=== PATIENT | male | born 1975 | race African-American/Black ===

== ENCOUNTER 2018-04-19 07:58 | Emergency (ER) | payer MEDICAID ==
[~2018-04-19] VITALS: Ht 177.8 cm; Wt 113.0 kg
[~2018-04-19 07:58] MED LIST: QUET300T2 PO; SERT50TA PO
[2018-04-19] MEDS ORDERED: KETOROLAC 30MG/ML VIAL IV STA (10:43)
[2018-04-19] MEDS ORDERED: MORPHINE SULFATE 4 MG/ML CPJ (NOT FOR IM USE) IV ONE (11:45)
[2018-04-19 11:51] LABS: BASOPHILS % 0.8 % (0.0-2.0); EOSINOPHILS % 0.2 % (0.0-5.0); HEMATOCRIT. 47.3 % (42.0-52.0); HEMOGLOBIN. 16.3 g/dL (14.0-18.0); LYMPHOCYTES % 30.4 % (20.0-50.0); MEAN CORPUSCULAR HEMOGLOBIN 32.9 pg (28.0-32.0); MEAN CORPUSCULAR VOLUME 95.7 fL (80.0-94.0); MEAN PLATELET VOLUME 7.4 fl (7.4-10.4); MONOCYTES % 10.3 % (2.0-8.0); NEUTROPHILS % 58.3 % (40.0-76.0); PLATELET 249 x1000/uL (130-400); RED BLOOD CELL COUNT 4.95 mill/uL (4.7-6.1); RED CELL DISTRIBUTION WIDTH 14.7 % (11.6-14.6)
[2018-04-19 11:59] LABS: CHLORIDE 103 mEq/L (98-107)
[2018-04-19] MEDS ORDERED: ONDANSETRON HCL 4MG/2ML INJ IV ONE (12:00)
[2018-04-19] MEDS ORDERED: POTASSIUM CHLORIDE 20MEQ TABLET SR PO ONE (12:30)
[2018-04-19 12:45] LABS: CLARITY URINE CLEAR (CLEAR); COLOR URINE DARK YELLOW (YELLOW); KETONES URINE 2+ (NEGATIVE); LEUKOCYTE ESTERASE URINE NEGATIVE (NEGATIVE); NITRITE URINE NEGATIVE (NEGATIVE); OCCULT BLOOD URINE NEGATIVE (NEGATIVE); PROTEIN URINE 1+ (NEGATIVE); SPECIFIC GRAVITY URINE 1.037 (1.005-1.030)
[2018-04-19 13:00] VITALS: BP 117/75
== END 2018-04-19 13:00 | disposition home or self-care (01) ==
LOC: ER 09:06
DX: E87.6 Hypokalemia (principal); R10.12 Left upper quadrant pain; R30.0 Dysuria; R19.7 Diarrhea, unspecified; F12.10 Cannabis abuse, uncomplicated; F32.9 Major depressive disorder, single episode, unspecified
CPT/HCPCS: 36415; 74176; 80053; 81003; 83690; 85025; 96374; 96375; 99284; J1885; J2270; J2405

== ENCOUNTER 2018-08-08 16:22 | Emergency (ER) | payer MEDICAID ==
[~2018-08-08] VITALS: Ht 177.8 cm; Wt 100.0 kg
[~2018-08-08 16:22] MED LIST changes: +ACETAMINOPHEN 325MG TABLET ONE
[2018-08-08] MEDS ORDERED: ACETAMINOPHEN 325MG TABLET PO ONE (17:00)
[2018-08-08 21:10] VITALS: BP 136/113
== END 2018-08-09 04:24 | disposition left against medical advice (07) ==
LOC: ER 16:22
DX: R30.9 Painful micturition, unspecified (principal)
CPT/HCPCS: 99282

== ENCOUNTER 2018-08-09 08:01 | Emergency (ER) | payer MEDICAID ==
[~2018-08-09] VITALS: Ht 177.8 cm; Wt 100.0 kg
[~2018-08-09 08:01] MED LIST changes: -ACETAMINOPHEN 325MG TABLET ONE
[2018-08-09] MEDS ORDERED: KETOROLAC 30MG/ML VIAL IV STA (12:06)
[2018-08-09] MEDS ORDERED: ONDANSETRON HCL 4MG/2ML INJ IV STA (12:06)
[2018-08-09] MEDS ORDERED: MORPHINE SULFATE 4 MG/ML CPJ (NOT FOR IM USE) IV STA (12:06)
[2018-08-09] MEDS ORDERED: SODIUM CHLORIDE 0.9% 1,000 ML IV ONE ×2 (12:06→15:09)
[2018-08-09] MEDS ORDERED: CEFTRIAXONE 1 G PREMIX 50 ML IV ONE (12:15)
[2018-08-09 12:37] LABS: BASOPHILS % 0.5 % (0.0-2.0); EOSINOPHILS % 0.3 % (0.0-5.0); HEMATOCRIT. 48.7 % (42.0-52.0); HEMOGLOBIN. 17.1 g/dL (14.0-18.0); LYMPHOCYTES % 21.7 % (20.0-50.0); MEAN CORPUSCULAR HEMOGLOBIN 34.2 pg (28.0-32.0); MEAN CORPUSCULAR VOLUME 97.5 fL (80.0-94.0); MEAN PLATELET VOLUME 7.5 fl (7.4-10.4); MONOCYTES % 10.7 % (2.0-8.0); NEUTROPHILS % 66.8 % (40.0-76.0); PLATELET 277 x1000/uL (130-400); RED BLOOD CELL COUNT 4.99 mill/uL (4.7-6.1); RED CELL DISTRIBUTION WIDTH 13.9 % (11.6-14.6)
[2018-08-09 12:41] LABS: CHLORIDE 97 mEq/L (98-107)
[2018-08-09 13:00] LABS: INR 1.1; PARTIAL THROMBOPLASTIN TIME 32.6 sec (23.4-31.0); PROTHROMBIN TIME 11.4 sec (9.1-11.1)
[2018-08-09] MEDS ORDERED: POTASSIUM CHLORIDE 20MEQ TABLET SR PO ONE (13:30)
[2018-08-09 13:53] LABS: CLARITY URINE CLOUDY (CLEAR); COLOR URINE DARK YELLOW (YELLOW); KETONES URINE 1+ (NEGATIVE); LEUKOCYTE ESTERASE URINE TRACE (NEGATIVE); NITRITE URINE NEGATIVE (NEGATIVE); OCCULT BLOOD URINE NEGATIVE (NEGATIVE); PROTEIN URINE 1+ (NEGATIVE); SPECIFIC GRAVITY URINE 1.033 (1.005-1.030)
[2018-08-09 14:07] LABS: *AMPHETAMINES SCREEN URINE NEGATIVE (NEGATIVE); *BARBITURATES SCREEN URINE NEGATIVE (NEGATIVE); *BENZODIAZEPINES SCREEN URINE NEGATIVE (NEGATIVE); *COCAINE SCREEN URINE NEGATIVE (NEGATIVE)
[2018-08-09 14:08] LABS: CANNABINOID URINE SCREEN PRESUMTIVE POSITIVE (NEGATIVE); METHADONE URINE SCREEN NEGATIVE (NEGATIVE); OPIATES URINE SCREEN PRESUMTIVE POSITIVE (NEGATIVE)
[2018-08-09 14:09] LABS: PHENCYCLIDINE URINE SCREEN NEGATIVE (NEGATIVE)
[2018-08-09] MEDS ORDERED: ONDANSETRON HCL 4MG/2ML INJ IV ONE (15:15)
[2018-08-09] MEDS ORDERED: MORPHINE SULFATE 4 MG/ML CPJ (NOT FOR IM USE) IV ONE (15:15)
[2018-08-09 17:30] VITALS: BP 116/68
== END 2018-08-09 17:43 | disposition home or self-care (01) ==
LOC: ER 08:01
DX: N39.0 Urinary tract infection, site not specified (principal); E87.6 Hypokalemia; F12.10 Cannabis abuse, uncomplicated; Z98.890 Other specified postprocedural states
CPT/HCPCS: 36415; 74176; 80053; 80305; 81003; 83605; 83690; 83880; 84484; 85025; 85610; 85730; 87040; 87086; 96365; 96366; 96375; 96376; 99284; J0696; J1885; J2270; J2405; J7030

== ENCOUNTER 2018-08-20 15:57 | Emergency (ER) | payer MEDICAID ==
[~2018-08-20] VITALS: Ht 177.8 cm; Wt 95.0 kg
[2018-08-20 16:32] LABS: CLARITY URINE CLEAR (CLEAR); COLOR URINE YELLOW (YELLOW); KETONES URINE TRACE (NEGATIVE); LEUKOCYTE ESTERASE URINE NEGATIVE (NEGATIVE); NITRITE URINE NEGATIVE (NEGATIVE); OCCULT BLOOD URINE NEGATIVE (NEGATIVE); PROTEIN URINE NEGATIVE (NEGATIVE); SPECIFIC GRAVITY URINE 1.013 (1.005-1.030); UROBILINOGEN URINE 0.2 E.U./dL (0.2-1.0)
[2018-08-20] MEDS ORDERED: SODIUM CHLORIDE 0.9% 100 ML IV ONE (19:30)
[2018-08-20] MEDS ORDERED: ONDANSETRON HCL 4MG/2ML INJ IV ONE (19:30)
[2018-08-20] MEDS ORDERED: MORPHINE SULFATE 4 MG/ML CPJ (NOT FOR IM USE) IV ONE (19:30)
[2018-08-20 21:39] LABS: BASOPHILS % 0.9 % (0.0-2.0); EOSINOPHILS % 1.1 % (0.0-5.0); LYMPHOCYTES % 42.6 % (20.0-50.0); MEAN CORPUSCULAR HEMOGLOBIN 33.9 pg (28.0-32.0); MEAN PLATELET VOLUME 7.5 fl (7.4-10.4); MONOCYTES % 8.1 % (2.0-8.0); NEUTROPHILS % 47.3 % (40.0-76.0); PLATELET 267 x1000/uL (130-400); RED BLOOD CELL COUNT 4.14 mill/uL (4.7-6.1); RED CELL DISTRIBUTION WIDTH 13.8 % (11.6-14.6)
[2018-08-20 21:46] LABS: CHLORIDE 109 mEq/L (98-107)
[2018-08-20] MEDS ORDERED: IBUPROFEN 800MG TABLET PO ONE (22:15)
[2018-08-20 23:29] VITALS: BP 115/69
== END 2018-08-20 23:29 | disposition home or self-care (01) ==
LOC: ER 16:01
DX: R39.11 Hesitancy of micturition (principal); R10.9 Unspecified abdominal pain; F17.200 Nicotine dependence, unspecified, uncomplicated
CPT/HCPCS: 36415; 76700; 80053; 81003; 85025; 87086; 96374; 96375; 99284; J2270; J2405; J7050

== ENCOUNTER 2018-10-20 19:17 | Inpatient (IN) | payer OTHER, MEDICAID ==
[~2018-10-20] VITALS: Ht 172.7 cm; Wt 86.6 kg
[2018-10-20 23:36] LABS: CHLORIDE 104 mEq/L (98-107)
[2018-10-20 23:40] LABS: ETHANOL BLOOD 41 mg/dL
[2018-10-20 23:47] LABS: EOSINOPHILS % 1.5 % (0.0-5.0); HEMATOCRIT. 40.2 % (42.0-52.0); HEMOGLOBIN. 14.2 g/dL (14.0-18.0); LYMPHOCYTES % 41.9 % (20.0-50.0); MEAN CORPUSCULAR HEMOGLOBIN 34.6 pg (28.0-32.0); MEAN CORPUSCULAR VOLUME 98.3 fL (80.0-94.0); NEUTROPHILS % 48.6 % (40.0-76.0); PLATELET 203 x1000/uL (130-400); RED BLOOD CELL COUNT 4.09 mill/uL (4.7-6.1); RED CELL DISTRIBUTION WIDTH 14.3 % (11.6-14.6)
[2018-10-21] MEDS ORDERED: POTASSIUM CHLORIDE INJ 40 MEQ in DEXT 5% WATER 250 ML IV NR ×2
[2018-10-21] MEDS ORDERED: POTASSIUM CHLORIDE 20MEQ TABLET SR PO NR
[2018-10-21 00:10] LABS: CLARITY URINE CLEAR (CLEAR); COLOR URINE AMBER (YELLOW); KETONES URINE TRACE (NEGATIVE); LEUKOCYTE ESTERASE URINE NEGATIVE (NEGATIVE); NITRITE URINE NEGATIVE (NEGATIVE); OCCULT BLOOD URINE 3+ (NEGATIVE); PH URINE 5.5 (4.5-8.0); PROTEIN URINE 1+ (NEGATIVE); SPECIFIC GRAVITY URINE 1.038 (1.005-1.030)
[2018-10-21 00:17] LABS: *BENZODIAZEPINES SCREEN URINE NEGATIVE (NEGATIVE); *COCAINE SCREEN URINE NEGATIVE (NEGATIVE); METHADONE URINE SCREEN NEGATIVE (NEGATIVE); OPIATES URINE SCREEN NEGATIVE (NEGATIVE); PHENCYCLIDINE URINE SCREEN NEGATIVE (NEGATIVE)
[2018-10-21 00:18] LABS: *AMPHETAMINES SCREEN URINE NEGATIVE (NEGATIVE); *BARBITURATES SCREEN URINE NEGATIVE (NEGATIVE); CANNABINOID URINE SCREEN PRESUMTIVE POSITIVE (NEGATIVE)
[2018-10-21 02:35] VITALS: BP 98/62
[2018-10-21 02:36] VITALS: BP 98/62
[2018-10-21 04:20] VITALS: BP 112/72
[2018-10-21] MEDS ORDERED: SODIUM CHLORIDE 0.45% 1,000 ML IV SCH (07:12)
[2018-10-21] MEDS ORDERED: DOCUSATE SODIUM 100MG CAPSULE PO PRN (07:15)
[2018-10-21] MEDS ORDERED: ONDANSETRON HCL 4MG/2ML INJ IV PRN (07:15)
[2018-10-21] MEDS ORDERED: LORAZEPAM 2MG/ML CPJ IV PRN (07:15)
[2018-10-21] MEDS ORDERED: MAGNESIUM/ALUMINUM HYDROXIDE/SIMETHICONE 30ML UDC PO PRN (07:15)
[2018-10-21] MEDS ORDERED: ACETAMINOPHEN 325MG TABLET PO PRN (07:15)
[2018-10-21] MEDS ORDERED: DIPHENHYDRAMINE 50MG/ML VIAL IV PRN (07:15)
[2018-10-21] MEDS ORDERED: HYDROCODONE/ACETAMINOPHEN 10/325MG TABLET PO PRN (07:15)
[2018-10-21] MEDS ORDERED: IPRATROPIUM/ALBUTEROL 0.5-3(2.5)MG/3ML NEB INH PRN (07:15)
[2018-10-21] MEDS ORDERED: CLONIDINE 0.1MG TABLET PO PRN (07:15)
[2018-10-21] MEDS ORDERED: GUAIFENESIN 200MG/10ML SUGAR FREE UDC PO PRN (07:15)
[2018-10-21] MEDS ORDERED: HYDROMORPHONE HCL/PF 2MG/ML CPJ IV PRN (07:15)
[2018-10-21] MEDS ORDERED: HYDRALAZINE 20MG/ML VIAL IV PRN (07:15)
[2018-10-21] MEDS ORDERED: NA PHOS,M-B/NA PHOS,DI-BA ENEMA 118ML PR PRN (07:15)
[2018-10-21] MEDS ORDERED: ENOXAPARIN 40MG/0.4ML SYR SUBCUT SCH (09:00)
[2018-10-21] MEDS ORDERED: SODIUM CHLORIDE 0.9% INJ 3ML FLUSH IVF SCH (14:00)
== END 2018-10-21 08:45 | disposition left against medical advice (07) | DRG 425 ==
LOC: ER 19:17 → ENRESERV 10-21 02:06 → 8WST 10-21 02:36
PROVIDERS: ADMIT Internal Medicine; ATTEND Internal Medicine
DX: E87.6 Hypokalemia (principal); Z53.21 Procedure and treatment not carried out due to patient leaving prior to being seen by health care provider; Z82.49 Family history of ischemic heart disease and other diseases of the circulatory system
CPT/HCPCS: 36415; 74176; 80305; 80320; 96374; 99285; J3480; J7040; J7060; G0480

== ENCOUNTER 2018-11-29 10:41 | Emergency (ER) | payer MEDICAID ==
[~2018-11-29] VITALS: Ht 177.8 cm; Wt 86.0 kg
[2018-11-29] MEDS ORDERED: SODIUM CHLORIDE 0.9% 1,000 ML IV ONE (11:28)
[2018-11-29] MEDS ORDERED: MORPHINE SULFATE 10 MG/ML CPJ IV ONE (11:45)
[2018-11-29] MEDS ORDERED: ONDANSETRON HCL 4MG/2ML INJ IV ONE (11:45)
[2018-11-29 11:52] LABS: KETONES URINE 1+ (NEGATIVE); LEUKOCYTE ESTERASE URINE TRACE (NEGATIVE); NITRITE URINE NEGATIVE (NEGATIVE); OCCULT BLOOD URINE 1+ (NEGATIVE); PROTEIN URINE 1+ (NEGATIVE); SPECIFIC GRAVITY URINE 1.036 (1.005-1.030)
[2018-11-29 11:56] LABS: CLARITY URINE SL HAZY (CLEAR); COLOR URINE DARK YELLOW (YELLOW)
[2018-11-29 12:24] LABS: *AMPHETAMINES SCREEN URINE NEGATIVE (NEGATIVE); *BARBITURATES SCREEN URINE NEGATIVE (NEGATIVE); *BENZODIAZEPINES SCREEN URINE NEGATIVE (NEGATIVE)
[2018-11-29 12:25] LABS: *COCAINE SCREEN URINE NEGATIVE (NEGATIVE); CANNABINOID URINE SCREEN PRESUMTIVE POSITIVE (NEGATIVE); METHADONE URINE SCREEN NEGATIVE (NEGATIVE); OPIATES URINE SCREEN NEGATIVE (NEGATIVE); PHENCYCLIDINE URINE SCREEN NEGATIVE (NEGATIVE)
[2018-11-29 13:31] LABS: BASOPHILS % 0.6 % (0.0-2.0); EOSINOPHILS % 0.2 % (0.0-5.0); HEMATOCRIT. 44.1 % (42.0-52.0); HEMOGLOBIN. 15.1 g/dL (14.0-18.0); LYMPHOCYTES % 15.2 % (20.0-50.0); MEAN CORPUSCULAR HEMOGLOBIN 34.2 pg (28.0-32.0); MEAN CORPUSCULAR VOLUME 99.5 fL (80.0-94.0); MEAN PLATELET VOLUME 7.4 fl (7.4-10.4); MONOCYTES % 8.2 % (2.0-8.0); NEUTROPHILS % 75.8 % (40.0-76.0); PLATELET 231 x1000/uL (130-400); RED BLOOD CELL COUNT 4.43 mill/uL (4.7-6.1); RED CELL DISTRIBUTION WIDTH 14.4 % (11.6-14.6)
[2018-11-29 13:35] LABS: CHLORIDE 103 mEq/L (98-107)
[2018-11-29 13:39] LABS: ETHANOL BLOOD < 10 mg/dL
[2018-11-29 13:44] LABS: PROTHROMBIN TIME 10.3 sec (9.6-11.0)
[2018-11-29] MEDS ORDERED: MAGNESIUM 2 G PREMIX 50 ML IV ONE (14:00)
[2018-11-29] MEDS ORDERED: KCL 10MEQ/50ML PREMIX 50 ML IV ONE (14:00)
[2018-11-29] MEDS ORDERED: POTASSIUM CHLORIDE 20MEQ TABLET SR PO ONE ×2 (14:00→16:45)
[2018-11-29 17:03] VITALS: BP 111/72
== END 2018-11-29 17:20 | disposition home or self-care (01) ==
LOC: ER 10:41
DX: K57.90 Diverticulosis of intestine, part unspecified, without perforation or abscess without bleeding (principal); K62.5 Hemorrhage of anus and rectum; E87.6 Hypokalemia; R39.15 Urgency of urination; R30.0 Dysuria; I10 Essential (primary) hypertension; F12.10 Cannabis abuse, uncomplicated
CPT/HCPCS: 36415; 74176; 80053; 80305; 80320; 81003; 83690; 84484; 85025; 85610; 86850; 86900; 86901; 93005; 96365; 96367; 96375; 99284; J2270; J2405; J3475; J3480; J7030; G0480

== ENCOUNTER 2019-02-12 19:09 | Emergency (ER) | payer MEDICAID ==
[~2019-02-12] VITALS: Ht 177.8 cm; Wt 77.0 kg
[2019-02-12] MEDS ORDERED: KETOROLAC 30MG/ML VIAL IV STA (21:54)
[2019-02-12] MEDS ORDERED: SODIUM CHLORIDE 0.9% 1,000 ML IV ONE (21:54)
[2019-02-12] MEDS ORDERED: ONDANSETRON HCL 4MG/2ML INJ IV STA (21:54)
[2019-02-12] MEDS ORDERED: MORPHINE SULFATE 4 MG/ML CPJ (NOT FOR IM USE) IV STA (21:54)
[2019-02-12 22:31] LABS: CHLORIDE 106 mEq/L (98-107)
[2019-02-12 22:35] LABS: ETHANOL BLOOD < 10 mg/dL
[2019-02-12 22:36] LABS: BASOPHILS % 0.5 % (0.0-2.0); EOSINOPHILS % 0.2 % (0.0-5.0); HEMATOCRIT. 46.5 % (42.0-52.0); HEMOGLOBIN. 15.8 g/dL (14.0-18.0); LYMPHOCYTES % 25.3 % (20.0-50.0); MEAN CORPUSCULAR HEMOGLOBIN 34.8 pg (28.0-32.0); MEAN CORPUSCULAR VOLUME 102.5 fL (80.0-94.0); MEAN PLATELET VOLUME 7.4 fl (7.4-10.4); MONOCYTES % 10.3 % (2.0-8.0); NEUTROPHILS % 63.7 % (40.0-76.0); PLATELET 249 x1000/uL (130-400); RED BLOOD CELL COUNT 4.54 mill/uL (4.7-6.1); RED CELL DISTRIBUTION WIDTH 15.4 % (11.6-14.6)
[2019-02-13] MEDS ORDERED: AMOXICILLIN/POTASSIUM CLAVULANATE 875/125MG TAB PO ONE (01:00)
[2019-02-13] MEDS ORDERED: HYDROCODONE/APAP 7.5/325MG 1 TAB TABLET PO ONE (01:30)
[2019-02-13 01:31] VITALS: BP 127/81
== END 2019-02-13 01:41 | disposition home or self-care (01) ==
LOC: ER 19:09
DX: N20.0 Calculus of kidney (principal); K04.7 Periapical abscess without sinus; R10.32 Left lower quadrant pain; F12.10 Cannabis abuse, uncomplicated; F17.210 Nicotine dependence, cigarettes, uncomplicated; Z87.828 Personal history of other (healed) physical injury and trauma; Z98.890 Other specified postprocedural states
CPT/HCPCS: 36415; 70486; 74176; 80053; 80320; 83605; 83690; 84484; 85025; 87040; 96374; 96375; 99284; J1885; J2270; J2405; J7030; Z7610; G0480

== ENCOUNTER 2019-02-14 01:10 | Emergency (ER) | payer MEDICAID ==
[~2019-02-14] VITALS: Ht 177.8 cm; Wt 82.0 kg
[2019-02-14] MEDS ORDERED: ONDANSETRON HCL 4MG/2ML INJ IV STA (04:17)
[2019-02-14] MEDS ORDERED: FAMOTIDINE 20MG/2ML VIAL IV STA (04:17)
[2019-02-14 04:51] LABS: BASOPHILS % 1.1 % (0.0-2.0); EOSINOPHILS % 1.5 % (0.0-5.0); HEMOGLOBIN. 15.1 g/dL (14.0-18.0); MEAN CORPUSCULAR HEMOGLOBIN 35.3 pg (28.0-32.0); MEAN CORPUSCULAR VOLUME 102.8 fL (80.0-94.0); MEAN PLATELET VOLUME 7.4 fl (7.4-10.4); MONOCYTES % 7.9 % (2.0-8.0); NEUTROPHILS % 54.5 % (40.0-76.0); PLATELET 233 x1000/uL (130-400); RED BLOOD CELL COUNT 4.28 mill/uL (4.7-6.1); RED CELL DISTRIBUTION WIDTH 15.2 % (11.6-14.6)
[2019-02-14 04:54] LABS: CHLORIDE 102 mEq/L (98-107); INR 1.1
[2019-02-14 05:03] LABS: CLARITY URINE CLEAR (CLEAR); COLOR URINE YELLOW (YELLOW); KETONES URINE NEGATIVE (NEGATIVE); LEUKOCYTE ESTERASE URINE NEGATIVE (NEGATIVE); NITRITE URINE NEGATIVE (NEGATIVE); OCCULT BLOOD URINE NEGATIVE (NEGATIVE); PROTEIN URINE NEGATIVE (NEGATIVE); SPECIFIC GRAVITY URINE 1.014 (1.005-1.030)
[2019-02-14] MEDS ORDERED: HYDROCODONE/ACETAMINOPHEN 5/325MG TABLET PO ONE (06:00)
[2019-02-14] MEDS ORDERED: POTASSIUM CHLORIDE 20MEQ TABLET SR PO ONE (06:45)
[2019-02-14 08:35] VITALS: BP 120/80
== END 2019-02-14 09:01 | disposition home or self-care (01) ==
LOC: ER 01:10
DX: S02.652A Fracture of angle of left mandible, initial encounter for closed fracture (principal); R10.32 Left lower quadrant pain; E87.6 Hypokalemia; N20.0 Calculus of kidney; E80.6 Other disorders of bilirubin metabolism; F12.10 Cannabis abuse, uncomplicated; F17.200 Nicotine dependence, unspecified, uncomplicated; Z87.19 Personal history of other diseases of the digestive system; X58.XXXA Exposure to other specified factors, initial encounter; Y93.89 Activity, other specified; Y92.89 Other specified places as the place of occurrence of the external cause; Y99.8 Other external cause status
CPT/HCPCS: 36415; 70486; 76705; 80053; 81003; 83690; 85025; 85610; 96374; 96375; 99284; J2405; J3490; Z7610

== ENCOUNTER 2019-08-01 07:52 | Emergency (ER) | payer MEDICAID ==
[~2019-08-01] VITALS: Ht 177.8 cm; Wt 82.0 kg
[2019-08-01] MEDS ORDERED: FAMOTIDINE 20MG/2ML VIAL IV STA (09:01)
[2019-08-01] MEDS ORDERED: SODIUM CHLORIDE 0.9% 1,000 ML IV ONE ×2 (09:01→11:05)
[2019-08-01] MEDS ORDERED: MORPHINE SULFATE 4 MG/ML CPJ (NOT FOR IM USE) IV STA (09:01)
[2019-08-01] MEDS ORDERED: ONDANSETRON HCL 4MG/2ML INJ IV STA (09:01)
[2019-08-01 09:10] LABS: BASOPHILS % 0.1 % (0.0-2.0); HEMATOCRIT. 46.8 % (42.0-52.0); HEMOGLOBIN. 16.3 g/dL (14.0-18.0); LYMPHOCYTES % 8.2 % (20.0-50.0); MEAN CORPUSCULAR HEMOGLOBIN 35.2 pg (28.0-32.0); MEAN CORPUSCULAR VOLUME 101.1 fL (80.0-94.0); MEAN PLATELET VOLUME 7.4 fl (7.4-10.4); MONOCYTES % 4.5 % (2.0-8.0); NEUTROPHILS % 87.2 % (40.0-76.0); PLATELET 291 x1000/uL (130-400); RED BLOOD CELL COUNT 4.63 mill/uL (4.7-6.1); RED CELL DISTRIBUTION WIDTH 13.6 % (11.6-14.6)
[2019-08-01 09:14] LABS: CHLORIDE 103 mEq/L (98-107)
[2019-08-01 09:16] LABS: PROTHROMBIN TIME 10.9 sec (9.6-11.0)
[2019-08-01] MEDS ORDERED: POTASSIUM CHLORIDE 20MEQ TABLET SR PO ONE (11:15)
[2019-08-01 11:32] LABS: CLARITY URINE CLEAR (CLEAR); COLOR URINE YELLOW (YELLOW); KETONES URINE 2+ (NEGATIVE); LEUKOCYTE ESTERASE URINE NEGATIVE (NEGATIVE); NITRITE URINE NEGATIVE (NEGATIVE); OCCULT BLOOD URINE NEGATIVE (NEGATIVE); PROTEIN URINE 1+ (NEGATIVE); SPECIFIC GRAVITY URINE 1.084 (1.005-1.030)
[2019-08-01] MEDS ORDERED: KETOROLAC 30MG/ML VIAL IV ONE (12:00)
[2019-08-01 12:45] VITALS: BP 123/76
== END 2019-08-01 12:51 | disposition left against medical advice (07) ==
LOC: ER 08:10 → CANBEDREQ 12:46 → ER 12:51
DX: K56.7 Ileus, unspecified (principal); R10.9 Unspecified abdominal pain; R11.10 Vomiting, unspecified; E87.6 Hypokalemia
CPT/HCPCS: 36415; 74177; 80053; 81003; 83690; 85025; 85610; 96361; 96374; 96375; 99284; J1885; J2270; J2405; J3490; J7030

== ENCOUNTER 2019-08-03 07:48 | Inpatient (IN) | payer MEDICAID ==
[~2019-08-03] VITALS: Ht 177.8 cm; Wt 81.6 kg
[2019-08-03] MEDS ORDERED: MORPHINE SULFATE 4 MG/ML CPJ (NOT FOR IM USE) IV STA (08:47)
[2019-08-03] MEDS ORDERED: SODIUM CHLORIDE 0.9% 1,000 ML IV ONE (08:47)
[2019-08-03] MEDS ORDERED: ONDANSETRON HCL 4MG/2ML INJ IV STA (08:47)
[2019-08-03 09:35] LABS: BASOPHILS % 0.1 % (0.0-2.0); HEMATOCRIT. 37.6 % (42.0-52.0); HEMOGLOBIN. 13.1 g/dL (14.0-18.0); LYMPHOCYTES % 10.1 % (20.0-50.0); MEAN CORPUSCULAR HEMOGLOBIN 35.4 pg (28.0-32.0); MEAN CORPUSCULAR VOLUME 101.3 fL (80.0-94.0); MEAN PLATELET VOLUME 7.2 fl (7.4-10.4); MONOCYTES % 6.4 % (2.0-8.0); NEUTROPHILS % 83.4 % (40.0-76.0); PLATELET 254 x1000/uL (130-400); RED BLOOD CELL COUNT 3.71 mill/uL (4.7-6.1); RED CELL DISTRIBUTION WIDTH 13.6 % (11.6-14.6)
[2019-08-03 09:37] LABS: PROTHROMBIN TIME 10.9 sec (9.6-11.0)
[2019-08-03 09:43] LABS: CHLORIDE 106 mEq/L (98-107)
[2019-08-03] MEDS ORDERED: MORPHINE SULFATE 4 MG/ML CPJ (NOT FOR IM USE) IV ONE ×2 (10:00→11:45)
[2019-08-03] MEDS ORDERED: CLONIDINE 0.1MG TABLET PO PRN (13:15)
[2019-08-03] MEDS ORDERED: ONDANSETRON HCL 4MG/2ML INJ IV PRN (13:15)
[2019-08-03] MEDS ORDERED: ACETAMINOPHEN 325MG TABLET PO PRN (13:15)
[2019-08-03] MEDS ORDERED: IPRATROPIUM/ALBUTEROL 0.5-3(2.5)MG/3ML NEB HHN PRN (13:15)
[2019-08-03 13:54] LABS: PHOSPHORUS 2.4 mg/dL (2.5-4.9)
[2019-08-03] MEDS: SODIUM CHLORIDE 0.9% 1,000 ML IV SCH (14:00)
[2019-08-03] MEDS: MORPHINE SULFATE 2 MG/ML CPJ (NOT FOR IM USE) IV PRN ×3 (14:26→22:32)
[2019-08-03 16:41] LABS: FOLIC ACID (FOLATE) SERUM 11.1 ng/mL (>5.38)
[2019-08-03 17:06] VITALS: BP 126/107
[2019-08-03 20:00] VITALS: BP 105/73
[2019-08-03] MEDS: PANTOPRAZOLE SODIUM 40 MG/VIAL IV SCH (20:53)
[2019-08-04] VITALS: BP 122/81
[2019-08-04] MEDS: MORPHINE SULFATE 2 MG/ML CPJ (NOT FOR IM USE) IV PRN ×4 (02:33→16:44)
[2019-08-04] MEDS: SODIUM CHLORIDE 0.9% 1,000 ML IV SCH ×2 (03:20→16:40)
[2019-08-04 04:00] VITALS: BP 123/84
[2019-08-04 08:00] VITALS: BP 112/63
[2019-08-04] MEDS: PANTOPRAZOLE SODIUM 40 MG/VIAL IV SCH (09:50)
[2019-08-04 12:00] VITALS: BP 111/80
[2019-08-04] MEDS ORDERED: PANT40TA4 MT (13:37)
[2019-08-04 16:13] VITALS: BP 111/80
[2019-08-04 16:44] VITALS: BP 148/88
== END 2019-08-04 17:45 | disposition home or self-care (01) | DRG 241 ==
LOC: ER 07:48 → 6EST 11:43 → ENRESERV 12:29
PROVIDERS: ADMIT Internal Medicine; ATTEND Internal Medicine
DX: K29.71 Gastritis, unspecified, with bleeding (principal); A08.4 Viral intestinal infection, unspecified; D50.9 Iron deficiency anemia, unspecified; D53.9 Nutritional anemia, unspecified; F10.10 Alcohol abuse, uncomplicated; D75.89 Other specified diseases of blood and blood-forming organs; F17.200 Nicotine dependence, unspecified, uncomplicated; N20.0 Calculus of kidney; Z82.49 Family history of ischemic heart disease and other diseases of the circulatory system
CPT/HCPCS: 36415; 74176; 80053; 82607; 82746; 83735; 84100; 85025; 93970; 96374; 99285; C9113; J2270; J2405; J7030

== ENCOUNTER 2019-09-27 12:35 | Emergency (ER) | payer MEDICAID ==
[~2019-09-27] VITALS: Ht 182.9 cm; Wt 81.0 kg
[~2019-09-27 12:35] MED LIST changes: +PANT40TA4 MT; -QUET300T2 PO; -SERT50TA PO
[2019-09-27] MEDS ORDERED: ACETAMINOPHEN 500MG TABLET PO ONE (13:15)
[2019-09-27] MEDS ORDERED: IBUPROFEN 800MG TABLET PO ONE (13:15)
[2019-09-27 16:31] VITALS: BP 164/68
== END 2019-09-27 17:43 | disposition home or self-care (01) ==
LOC: ER 12:35
DX: M25.461 Effusion, right knee (principal); M25.562 Pain in left knee; M25.561 Pain in right knee; M25.462 Effusion, left knee; Z87.828 Personal history of other (healed) physical injury and trauma; Z98.890 Other specified postprocedural states
CPT/HCPCS: 73562; 93970; 99284

== ENCOUNTER 2020-08-11 07:09 | Emergency (ER) | payer MEDICAID ==
[~2020-08-11] VITALS: Ht 177.8 cm; Wt 73.0 kg
[~2020-08-11 07:09] MED LIST changes: -PANT40TA4 MT; +PANT40TA51 MT
[2020-08-11 07:21] VITALS: BP 115/78
[2020-08-11] MEDS ORDERED: ONDANSETRON 4MG ODT PO ONE (07:45)
[2020-08-11] MEDS ORDERED: KETOROLAC 60MG/2ML VIAL IM ONE (07:45)
[2020-08-11] MEDS ORDERED: MORPHINE SULFATE 10 MG/ML CPJ IM ONE (07:45)
[2020-08-11] MEDS ORDERED: IBUP-2028 MT (08:17)
[2020-08-11] MEDS ORDERED: HYDR-4346 MT (08:17)
== END 2020-08-11 08:59 | disposition home or self-care (01) ==
LOC: ER 07:09
DX: S52.122A Displaced fracture of head of left radius, initial encounter for closed fracture (principal); W18.39XA Other fall on same level, initial encounter; Y93.89 Activity, other specified; Y92.89 Other specified places as the place of occurrence of the external cause; Y99.8 Other external cause status; Z98.890 Other specified postprocedural states; Z79.899 Other long term (current) drug therapy
CPT/HCPCS: 29105; 73080; 73090; 96372; 99284; J1885; J2270; Q0162

== ENCOUNTER 2021-02-02 14:16 | Emergency (ER) | payer MEDICAID ==
[~2021-02-02] VITALS: Ht 175.3 cm; Wt 170.0 kg
[~2021-02-02 14:16] MED LIST changes: +HYDR-4346 MT; +IBUP-2028 MT
[2021-02-02] MEDS ORDERED: HYDROCODONE/ACETAMINOPHEN 5/325MG TABLET PO ONE (15:00)
[2021-02-02] MEDS ORDERED: HYDR-4001 MT (16:00)
[2021-02-02] MEDS ORDERED: IBUP-2030 MT (16:00)
[2021-02-02 16:13] VITALS: BP 130/86
== END 2021-02-02 16:57 | disposition home or self-care (01) ==
LOC: ER 14:28
DX: S52.91XA Unspecified fracture of right forearm, initial encounter for closed fracture (principal); Z79.899 Other long term (current) drug therapy; Z98.890 Other specified postprocedural states; Y04.0XXA Assault by unarmed brawl or fight, initial encounter; Y93.89 Activity, other specified; Y92.89 Other specified places as the place of occurrence of the external cause; Y99.8 Other external cause status
CPT/HCPCS: 29105; 73080; 73090; 99284

== ENCOUNTER 2023-03-13 13:45 | Emergency (ER) | payer MEDICAID ==
[~2023-03-13] VITALS: Ht 182.9 cm; Wt 84.0 kg
[~2023-03-13 13:45] MED LIST changes: +HYDR-4001 MT; +IBUP-2030 MT
[2023-03-13 13:57] VITALS: BP 134/95; PULSE 110; RESP 19; TEMP 98.6; O2SAT 99
== END 2023-03-13 17:07 | disposition home or self-care (01) ==
LOC: ER 13:45
DX: N50.89 Other specified disorders of the male genital organs (principal); Z98.890 Other specified postprocedural states
CPT/HCPCS: 76870; 93976; 99284

== ENCOUNTER 2023-03-13 17:37 | Emergency (ER) | payer MEDICAID ==
[~2023-03-13] VITALS: Ht 188 cm; Wt 87.0 kg
[2023-03-13 17:44] VITALS: BP 146/80; PULSE 94; RESP 19; O2SAT 99
[2023-03-13 22:43] LABS: BASOPHILS % 0.4 % (0.0-2.0); DIFFERENTIAL COMMENT 1; EOSINOPHILS % 1.2 % (0.0-5.0); HEMOGLOBIN. 14.7 g/dL (14.0-18.0); LYMPHOCYTES % 25.1 % (20.0-50.0); MEAN CORPUSCULAR HEMOGLOBIN 33.5 pg (28.0-32.0); MEAN CORPUSCULAR HGB CONC 34.2 g/dL (31.0-37.0); MEAN CORPUSCULAR VOLUME 97.9 fL (80.0-94.0); MEAN PLATELET VOLUME 7.4 fl (7.4-10.4); MONOCYTES % 4.8 % (2.0-8.0); NEUTROPHILS % 68.5 % (40.0-76.0); PLATELET 253 x1000/uL (130-400); RED BLOOD CELL COUNT 4.39 mill/uL (4.7-6.1); RED CELL DISTRIBUTION WIDTH 13.7 % (11.6-14.6); WHITE BLOOD COUNT 11.7 x1000/uL (4.5-11.0)
[2023-03-13 22:48] LABS: CHLORIDE 108 mEq/L (98-107); INDEX HEMOLYSI 1 (1-3); INDEX ICTERIC 1 (1-4); INDEX LIPEMIC 1 (1-3); POTASSIUM 3.3 mEq/L (3.5-5.1); PROTHROMBIN TIME 10.9 sec (9.6-11.0); SODIUM 143 mEq/L (136-145)
[2023-03-13 22:57] LABS: ALANINE AMINOTRANSFERASE 31 IU/L (13-61); ALBUMIN 4.3 g/dL (3.4-5.0); ASPARTATE AMINOTRANSFERASE 32 IU/L (15-37); BILIRUBIN TOTAL 0.3 mg/dL (0.1-1.0); CALCIUM 8.8 mg/dL (8.5-10.1); CARBON DIOXIDE 28 mEq/L (21-32); GLUCOSE 75 mg/dL (70-105); PROTEIN TOTAL 8.4 g/dL (6.0-8.3); UREA NITROGEN BLOOD 19 mg/dL (7-21)
[2023-03-14] MEDS ORDERED: ACETAMINOPHEN 325MG TABLET PO STA (00:22)
[2023-03-14 00:34] VITALS: TEMP 98.3
[2023-03-14 00:52] LABS: CLARITY URINE CLEAR (CLEAR); COLOR URINE YELLOW (YELLOW); GLUCOSE URINE NEGATIVE (NEGATIVE); KETONES URINE TRACE (NEGATIVE); LEUKOCYTE ESTERASE URINE NEGATIVE (NEGATIVE); NITRITE URINE NEGATIVE (NEGATIVE); OCCULT BLOOD URINE TRACE (NEGATIVE); PH URINE 5.5 (4.5-8.0); PROTEIN URINE TRACE (NEGATIVE); SPECIFIC GRAVITY URINE 1.033 (1.005-1.030)
[2023-03-14 00:53] LABS: BACTERIA URINE NONE SEEN; RBC URINE 0-2 /hpf (0-2); YEAST URINE NONE SEEN
[2023-03-14 01:50] LABS: SQUAMOUS EPITHELIAL CELL URINE FEW /lpf (RARE/1+)
[2023-03-14 01:52] LABS: WBC URINE 0-2 /hpf (0-2)
== END 2023-03-14 02:58 | disposition left against medical advice (07) ==
LOC: ER 17:37
DX: R10.9 Unspecified abdominal pain (principal)
CPT/HCPCS: 36415; 80053; 81003; 85025; 99283

== ENCOUNTER 2023-03-14 08:52 | Emergency (ER) | payer MEDICAID ==
[~2023-03-14] VITALS: Ht 177.8 cm; Wt 79.0 kg
[2023-03-14 09:03] VITALS: O2SAT 98
[2023-03-14] MEDS ORDERED: IBUPROFEN 600MG TABLET PO ONE (10:15)
[2023-03-14] MEDS ORDERED: ONDANSETRON 4MG ODT PO ONE (10:15)
[2023-03-14 11:27] LABS: CLARITY URINE CLEAR (CLEAR); COLOR URINE YELLOW (YELLOW); GLUCOSE URINE NEGATIVE (NEGATIVE); KETONES URINE NEGATIVE (NEGATIVE); LEUKOCYTE ESTERASE URINE NEGATIVE (NEGATIVE); NITRITE URINE NEGATIVE (NEGATIVE); OCCULT BLOOD URINE TRACE (NEGATIVE); PH URINE 5.5 (4.5-8.0); PROTEIN URINE NEGATIVE (NEGATIVE); SPECIFIC GRAVITY URINE 1.033 (1.005-1.030)
[2023-03-14 11:29] LABS: RBC URINE 0-2 /hpf (0-2); YEAST URINE NONE SEEN
[2023-03-14 11:47] LABS: BACTERIA URINE RARE; SQUAMOUS EPITHELIAL CELL URINE RARE /lpf (RARE/1+); WBC URINE 0-2 /hpf (0-2)
[2023-03-14 12:40] VITALS: BP 124/87; PULSE 85; RESP 17; TEMP 97.9
== END 2023-03-14 12:43 | disposition home or self-care (01) ==
LOC: ER 09:04
DX: I72.3 Aneurysm of iliac artery (principal); R31.9 Hematuria, unspecified; I10 Essential (primary) hypertension; Z98.890 Other specified postprocedural states
CPT/HCPCS: 99284; 74176; 81003; Q0162

== ENCOUNTER 2023-04-13 09:59 | Emergency (ER) | payer MEDICAID ==
[~2023-04-13] VITALS: Ht 177.8 cm; Wt 74.0 kg
[2023-04-13 10:01] VITALS: O2SAT 100
[2023-04-13 10:46] LABS: BASOPHILS % 0.3 % (0.0-2.0); EOSINOPHILS % 0.1 % (0.0-5.0); HEMATOCRIT. 42.3 % (42.0-52.0); HEMOGLOBIN. 14.4 g/dL (14.0-18.0); LYMPHOCYTES % 16.4 % (20.0-50.0); MEAN CORPUSCULAR HEMOGLOBIN 32.8 pg (28.0-32.0); MEAN CORPUSCULAR HGB CONC 34.1 g/dL (31.0-37.0); MEAN CORPUSCULAR VOLUME 96.3 fL (80.0-94.0); MEAN PLATELET VOLUME 7.7 fl (7.4-10.4); MONOCYTES % 8.5 % (2.0-8.0); NEUTROPHILS % 74.7 % (40.0-76.0); PLATELET 175 x1000/uL (130-400); RED BLOOD CELL COUNT 4.39 mill/uL (4.7-6.1); RED CELL DISTRIBUTION WIDTH 13.7 % (11.6-14.6); WHITE BLOOD COUNT 4.7 x1000/uL (4.5-11.0)
[2023-04-13 10:52] LABS: PROTHROMBIN TIME 10.4 sec (9.6-11.0)
[2023-04-13 11:07] LABS: ALANINE AMINOTRANSFERASE 28 IU/L (10-49); ALBUMIN 4.5 g/dL (3.2-4.8); ASPARTATE AMINOTRANSFERASE 33 IU/L (<34); BILIRUBIN TOTAL 0.4 mg/dL (0.1-1.0); CALCIUM 9.3 mg/dL (8.7-10.4); CARBON DIOXIDE 27 mEq/L (21-32); CHLORIDE 103 mEq/L (98-107); CREATININE 0.9 mg/dL (0.6-1.3); GLUCOSE 83 mg/dL (70-105); POTASSIUM 3.2 mEq/L (3.5-5.1); PROTEIN TOTAL 6.9 g/dL (6.0-8.3); SODIUM 137 mEq/L (136-145); UREA NITROGEN BLOOD 12 mg/dL (9-23)
[2023-04-13 11:21] LABS: ETHANOL BLOOD < 10 mg/dL (<10)
[2023-04-13] MEDS ORDERED: IOHEXOL-300 100 ML BOTTLE ONE (15:21)
[2023-04-13] MEDS ORDERED: KETOROLAC 15MG/ML VIAL IV ONE (16:00)
[2023-04-13] MEDS ORDERED: POTASSIUM CHLORIDE 20MEQ TABLET SR PO ONE (16:15)
[2023-04-13 18:00] LABS: CLARITY URINE CLEAR (CLEAR); COLOR URINE YELLOW (YELLOW); GLUCOSE URINE NEGATIVE (NEGATIVE); KETONES URINE NEGATIVE (NEGATIVE); LEUKOCYTE ESTERASE URINE NEGATIVE (NEGATIVE); NITRITE URINE NEGATIVE (NEGATIVE); OCCULT BLOOD URINE NEGATIVE (NEGATIVE); PH URINE 6.5 (4.5-8.0); PROTEIN URINE TRACE (NEGATIVE); SPECIFIC GRAVITY URINE 1.064 (1.005-1.030)
[2023-04-13 18:03] LABS: BACTERIA URINE NONE SEEN; RBC URINE NONE SEEN /hpf (0-2); SQUAMOUS EPITHELIAL CELL URINE NONE SEEN /lpf (RARE/1+); WBC URINE NONE SEEN /hpf (0-2); YEAST URINE NONE SEEN
[2023-04-13 18:23] LABS: *AMPHETAMINES SCREEN URINE NEGATIVE (NEGATIVE); *BARBITURATES SCREEN URINE NEGATIVE (NEGATIVE); *BENZODIAZEPINES SCREEN URINE NEGATIVE (NEGATIVE); *COCAINE SCREEN URINE NEGATIVE (NEGATIVE); CANNABINOID URINE SCREEN NEGATIVE (NEGATIVE); ECSTASY MDMA SCREEN URINE NEGATIVE (NEGATIVE); METHADONE URINE SCREEN Neg (NEGATIVE); OPIATES URINE SCREEN NEGATIVE (NEGATIVE); PHENCYCLIDINE URINE SCREEN NEGATIVE (NEGATIVE)
[2023-04-13 19:48] VITALS: BP 92/58; PULSE 76; RESP 20; TEMP 97.4
== END 2023-04-13 19:47 | disposition home or self-care (01) ==
LOC: ER 09:59
DX: R10.32 Left lower quadrant pain (principal)
CPT/HCPCS: 80053; 80305; 81003; 80320; 83690; 85025; 85610; 36415; 74177; 93005; 96374; 99291; Q9967; J1885; G0480

== ENCOUNTER 2023-09-16 08:16 | Emergency (ER) | payer MEDICAID ==
[~2023-09-16] VITALS: Ht 177.8 cm; Wt 81.6 kg
[2023-09-16 08:26] VITALS: BP 127/77; PULSE 78; RESP 16; TEMP 98.4; O2SAT 100
[2023-09-16 09:00] LABS: CHLORIDE 111 mEq/L (98-107); POTASSIUM 3.4 mEq/L (3.5-5.1); SODIUM 143 mEq/L (136-145)
[2023-09-16 09:01] LABS: BASOPHILS % 0.5 % (0.0-2.0); CALCIUM 8.9 mg/dL (8.7-10.4); CARBON DIOXIDE 24 mEq/L (21-32); EOSINOPHILS % 0.2 % (0.0-5.0); HEMATOCRIT. 38.1 % (42.0-52.0); HEMOGLOBIN. 12.9 g/dL (14.0-18.0); LYMPHOCYTES % 21.9 % (20.0-50.0); MEAN CORPUSCULAR HEMOGLOBIN 32.4 pg (28.0-32.0); MEAN CORPUSCULAR VOLUME 95.4 fL (80.0-94.0); MEAN PLATELET VOLUME 7.2 fl (7.4-10.4); NEUTROPHILS % 72.4 % (40.0-76.0); PLATELET 228 x1000/uL (130-400); RED BLOOD CELL COUNT 3.99 mill/uL (4.7-6.1); RED CELL DISTRIBUTION WIDTH 13.5 % (11.6-14.6); WHITE BLOOD COUNT 6.6 x1000/uL (4.5-11.0)
[2023-09-16 09:06] LABS: CREATININE 0.8 mg/dL (0.6-1.3); GLUCOSE 67 mg/dL (70-105); UREA NITROGEN BLOOD 14 mg/dL (9-23)
[2023-09-16 09:08] LABS: ALANINE AMINOTRANSFERASE 23 IU/L (10-49); ALBUMIN 4.7 g/dL (3.2-4.8); ASPARTATE AMINOTRANSFERASE 29 IU/L (<34); BILIRUBIN TOTAL 0.6 mg/dL (0.1-1.0); PROTEIN TOTAL 7.4 g/dL (6.0-8.3)
[2023-09-16] MEDS: KETOROLAC 30MG/ML VIAL IM ONE (09:12)
[2023-09-16 09:15] LABS: CLARITY URINE CLEAR (CLEAR); COLOR URINE YELLOW (YELLOW); GLUCOSE URINE NEGATIVE (NEGATIVE); KETONES URINE NEGATIVE (NEGATIVE); LEUKOCYTE ESTERASE URINE NEGATIVE (NEGATIVE); NITRITE URINE NEGATIVE (NEGATIVE); OCCULT BLOOD URINE NEGATIVE (NEGATIVE); PH URINE 5.5 (4.5-8.0); PROTEIN URINE NEGATIVE (NEGATIVE); SPECIFIC GRAVITY URINE 1.011 (1.005-1.030); UROBILINOGEN URINE 0.2 E.U./dL (0.2-1.0)
[2023-09-16] MEDS ORDERED: IBUP-2029 MT (09:55)
[2023-09-17 19:06] LABS: CHLAMYDIA TRACHOMATIS NAA Negative (Negative); NEISSERIA GONORRHOEAE NAA Negative (Negative)
== END 2023-09-16 10:00 | disposition home or self-care (01) ==
LOC: ER 08:16
DX: R10.9 Unspecified abdominal pain (principal); R11.0 Nausea; Z79.899 Other long term (current) drug therapy
CPT/HCPCS: 99285; 74176; 87491; 87591; 80053; 81003; 83690; 85025; 36415; 96372; J1885

== ENCOUNTER 2024-01-31 10:07 | Emergency (ER) | payer MEDICAID ==
[~2024-01-31] VITALS: Ht 177.8 cm; Wt 82.0 kg
[~2024-01-31 10:07] MED LIST changes: +IBUP-2029 MT
[2024-01-31 10:10] VITALS: O2SAT 99
[2024-01-31 10:20] VITALS: BP 94/55; PULSE 92; RESP 16; TEMP 98.7; O2SAT 100
[2024-01-31] MEDS ORDERED: ACETAMINOPHEN 1000MG/100ML 100 ML IV ONE (10:45)
[2024-01-31 10:50] LABS: BASOPHILS % 0.5 % (0.0-2.0); EOSINOPHILS % 0.4 % (0.0-5.0); HEMATOCRIT. 39.1 % (42.0-52.0); HEMOGLOBIN. 13.5 g/dL (14.0-18.0); LYMPHOCYTES % 29.2 % (20.0-50.0); MEAN CORPUSCULAR HEMOGLOBIN 33.2 pg (28.0-32.0); MEAN CORPUSCULAR HGB CONC 34.4 g/dL (31.0-37.0); MEAN CORPUSCULAR VOLUME 96.3 fL (80.0-94.0); MEAN PLATELET VOLUME 7.5 fl (7.4-10.4); MONOCYTES % 9.5 % (2.0-8.0); NEUTROPHILS % 60.4 % (40.0-76.0); PLATELET 228 x1000/uL (130-400); RED BLOOD CELL COUNT 4.06 mill/uL (4.7-6.1); RED CELL DISTRIBUTION WIDTH 14.5 % (11.6-14.6); WHITE BLOOD COUNT 5.8 x1000/uL (4.5-11.0)
[2024-01-31 10:54] LABS: CHLORIDE 109 mEq/L (98-107); POTASSIUM 4.1 mEq/L (3.5-5.1); SODIUM 142 mEq/L (136-145)
[2024-01-31 10:55] LABS: CALCIUM 9.2 mg/dL (8.7-10.4); CARBON DIOXIDE 26 mEq/L (21-32)
[2024-01-31 11:00] LABS: CREATININE 0.9 mg/dL (0.6-1.3); GLUCOSE 94 mg/dL (70-105); UREA NITROGEN BLOOD 17 mg/dL (9-23)
[2024-01-31 11:02] LABS: ALANINE AMINOTRANSFERASE 35 IU/L (10-49); ALBUMIN 4.6 g/dL (3.2-4.8); ASPARTATE AMINOTRANSFERASE 30 IU/L (<34); BILIRUBIN DIRECT 0.2 mg/dL (<=3.0)
[2024-01-31 11:03] LABS: BILIRUBIN TOTAL 0.7 mg/dL (0.1-1.0); PROTEIN TOTAL 7.2 g/dL (6.0-8.3)
[2024-01-31 11:12] LABS: TROPONIN I HIGH SENSITIVITY < 4 ng/L (3.0-53)
== END 2024-01-31 16:36 | disposition left against medical advice (07) ==
LOC: ER 10:07
DX: K59.00 Constipation, unspecified (principal); Z98.890 Other specified postprocedural states; Z79.899 Other long term (current) drug therapy
CPT/HCPCS: 80076; 80048; 83690; 85025; 84484; 36415; 93005; 99284; Z7610; J0131